=== PATIENT | female | born 1960 | race Caucasian/White ===

== ENCOUNTER 2016-12-10 22:27 | Emergency (ER) | payer SELFPAY ==
[2016-12-10 22:31] VITALS: BP 134/74; PULSE 80; RESP 16; TEMP 97.9; O2SAT 96
--- NOTE | 2016-12-10 22:37 | EDPHY ---
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 She has history of breast cancer and an aortic aneurysm that is stable and being followed by [facility]. Patient denies any medical or trauma symptoms tonight. She denies any injury tonight. She has a small bruise under left eye that she says is from wrestling with her son 2 weeks ago. Denies headache or neck or back pain. Denies visual symptoms or double vision. REVIEW OF SYSTEMS: Eye: no change in vision or double vision ENT: no sore throat or hearing loss Cardiac: no chest pain or weakness or numbness in extremities Pulmonary: no cough or SOB Abdomen: no vomiting, diarrhea, abdominal pain Musculoskeletal: no back pain or neck pain or extremity pain Skin: Bruise under the left eye, no lacerations Neuro: no headache Constitutional: no fever : no urinary symptoms A comprehensive 10 point review of systems is otherwise negative aside from elements mentioned in the history of present illness. PAST MEDICAL HISTORY: As in HPI, breast cancer survivor Social history: Smoker, alcohol tonight. General Appearance: Alert and conversant, cooperative. Eyes: No scleral icterus. No proptosis, extraocular motion intact. No hyphema on direct visualization. ENT, Mouth: Normal mucous membranes. No facial bony tenderness and no crepitus. 2 x 4 mm bruise under the left eye. Normal tympanic membranes. Respiratory: Normal respiratory effort, breath sounds equal, lungs are clear to auscultation. Cardiovascular: Regular rate and rhythm. Gastrointestinal: Abdomen is soft and non tender. Neurological: Alert and oriented x3. Normally conversant. Face symmetric, normal movement and sensation in all extremities. Skin: Warm and dry, no rashes. Musculoskeletal: No peripheral edema and no joint swelling. No cervical thoracic or lumbar spinal tenderness. No extremity deformity or tenderness. Psychiatric: Tearful, upset Emergency Department course/MDM: No symptoms of active medical illness. She does have a bruise under left eye that appears to be superficial in nature only. I do not think it is likely she has an acute medical or surgical emergency which precludes discharge to custody of the police. The patient denies hallucination or suicidal ideation or homicidal ideation. Smoking Status: Never smoked Constitutional: Initial Vital Signs Temperature (C) 36.6 C 12/10/16 22:29 Heart Rate 80 12/10/16 22:29 Respiratory Rate 16 12/10/16 22:29 Blood Pressure 134/74 H 12/10/16 22:29 O2 Sat (%) 96 12/10/16 22:29 O2 Delivery Mode Room Air Allergies/Adverse Reactions: erythromycin base Allergy (Unverified 12/10/16 22:28) Home Medications: Medication Instructions Recorded Cancer Med 12/10/16 MDM/Departure - Depart Disposition: Home, Routine, Self-Care Clinical Impression: Contusion of face Qualifiers: Encounter type: initial encounter Qualified Code(s): S00.83XA - Contusion of other part of head, initial encounter Condition: Good Instructions: Black Eye (ED) Additional Instructions: YOU HAVE BEEN MEDICALLY CLEARED FOR RESIDENTIAL Referrals: Patient,NotPresent [Primary Care Provider] - As per Instructions (manasa Medeiros)
== END 2016-12-10 22:52 | disposition home or self-care (01) ==
DX: S00.83XA Contusion of other part of head, initial encounter (principal); F17.200 Nicotine dependence, unspecified, uncomplicated; Z85.3 Personal history of malignant neoplasm of breast; X58.XXXA Exposure to other specified factors, initial encounter